=== PATIENT | male | born 1995 | race African-American/Black ===

== ENCOUNTER 2019-11-23 19:37 | Emergency (ER) | payer MEDICAID, OTHER ==
[~2019-11-23] VITALS: Ht 185.4 cm; Wt 70.6 kg
[2019-11-23] MEDS ORDERED: ACETAMINOPHEN 325MG TABLET PO ONE (21:15)
[2019-11-23 22:02] VITALS: BP 112/66
== END 2019-11-23 22:06 | disposition home or self-care (01) ==
LOC: ER 19:37
DX: J06.9 Acute upper respiratory infection, unspecified (principal)
CPT/HCPCS: 99283